=== PATIENT | male | born 1995 | race Caucasian/White ===

== ENCOUNTER 2021-03-07 20:38 | Emergency (ER) | payer SELFPAY ==
[~2021-03-07] VITALS: Ht 180.3 cm; Wt 79.0 kg
[2021-03-07 21:09] VITALS: BP 138/73
[2021-03-07 21:59] LABS: CHLORIDE 106 mEq/L (98-107)
[2021-03-07 22:01] LABS: BASOPHILS % 0.5 % (0.0-2.0); EOSINOPHILS % 1.9 % (0.0-5.0); HEMOGLOBIN. 15.4 g/dL (14.0-18.0); MEAN CORPUSCULAR HEMOGLOBIN 28.4 pg (28.0-32.0); MEAN CORPUSCULAR VOLUME 87.1 fL (80.0-94.0); MEAN PLATELET VOLUME 8.5 fl (7.4-10.4); NEUTROPHILS % 50.6 % (40.0-76.0); PLATELET 313 x1000/uL (130-400); RED CELL DISTRIBUTION WIDTH 14.3 % (11.6-14.6)
[2021-03-07 22:03] LABS: ETHANOL BLOOD < 10 mg/dL
== END 2021-03-08 03:17 | disposition left against medical advice (07) ==
LOC: ER 20:38
DX: F91.9 Conduct disorder, unspecified (principal); F20.9 Schizophrenia, unspecified
CPT/HCPCS: 36415; 80053; 80320; 85025; 99283; G0480